=== PATIENT | female | born 1970 | race Two or more races ===

== ENCOUNTER 2017-04-02 08:45 | Emergency (ER) | payer BC ==
[~2017-04-02] VITALS: Ht 162.6 cm; Wt 79.1 kg
[~2017-04-02 08:45] MED LIST: ASPI81TA50 PO; ATOR10TA9 PO; ENAL2.5T32 PO; METF10002 PO; METO25TA35 PO; NORE-22 PO
[2017-04-02] MEDS ORDERED: PROCHLORPERAZINE 5 MG/ML, 2ML IVPush ONE (10:00)
[2017-04-02] MEDS ORDERED: DIPHENHYDRAMINE 50 MG/ML, 1ML IVPush ONE (10:00)
[2017-04-02] MEDS ORDERED: SODIUM CHLORIDE FLUSH 10ML SYR IVF ONE (10:00)
[2017-04-02] MEDS ORDERED: SODIUM CHLORIDE 0.9% 1,000ML IVBOLUS ONE (10:00)
[2017-04-02] MEDS ORDERED: DIPHENHYDRAMINE 50 MG/ML, 1ML ONE (10:10)
[2017-04-02] MEDS ORDERED: PROCHLORPERAZINE 5 MG/ML, 2ML ONE (10:10)
[2017-04-02 10:28] LABS: BLOOD UREA NITROGEN 12 mg/dL (7-18)
[2017-04-02 10:33] LABS: IS PT STATUS REG ER OR PRE ER? YES
[2017-04-02 12:03] VITALS: BP 127/79
== END 2017-04-02 12:27 | disposition home or self-care (01) ==
LOC: ED 09:18
DX: G43.009 Migraine without aura, not intractable, without status migrainosus (principal); I10 Essential (primary) hypertension
CPT/HCPCS: 36415; 70450; 71010; 80048; 82040; 83880; 84484; 85025; 96361; 96374; 96375; 99285; J0780; J1200; J7030

== ENCOUNTER → 2017-04-28 | Outpatient (CLI) | payer BC ==
[~2017-04-28] MED LIST changes: +GADOBUTROL 7.5 MMOL/7.5 ML PFS ONE
== END | disposition home or self-care (01) ==
LOC: RAD 07:34
PROVIDERS: ATTEND Psychiatry & Neurology Neurology
DX: G43.719 Chronic migraine without aura, intractable, without status migrainosus (principal)
CPT/HCPCS: 70553; A9585

== ENCOUNTER → 2017-06-05 | Outpatient (CLI) | payer BC ==
[~2017-06-05] MED LIST changes: -GADOBUTROL 7.5 MMOL/7.5 ML PFS ONE
== END | disposition home or self-care (01) ==
LOC: CVU 12:02
PROVIDERS: ATTEND Internal Medicine Cardiovascular Disease
DX: I87.2 Venous insufficiency (chronic) (peripheral) (principal); R00.2 Palpitations; E11.9 Type 2 diabetes mellitus without complications; R60.0 Localized edema; M79.605 Pain in left leg; M79.604 Pain in right leg
CPT/HCPCS: 93306; 93970